=== PATIENT | female | born 1930 | race Caucasian/White ===

== ENCOUNTER 2016-06-17 17:05 | Emergency (ER) | payer MEDICARE, BC ==
[~2016-06-17 17:05] MED LIST: ACIDOPHILUS1 EAC3 PO; AMIODARONE HCL200 M1 PO; AMLODIPINE BESYL5 MG PO; ASPIR 8181 M1 PO; BROVANA15 MCG/22 INH; BUDESONIDE0.5 MG/21 IH; CALCIUM600 M1 PO; CERTAVITE SR-A1 EACH PO; CLARITIN10 M8 PO; DEMADEX20 M1 PO; HYDROCODON-ACE1 EA16 PO; IPRAT-ALBUT 0.5-3 ML IH; LEVEMIR100 UNITS/ SC; LOPERAMIDE2 M2 PO; METOLAZONE2.5 M1 PO; NOVOLOG100 UNITS/ SC; POTASSIUM CHLO20 ME2 PO; PRAVASTATIN SOD20 M1 PO; PRED FORTE1 ML RIGHT EYE; REGULOID0.52 GM PO; TRAMADOL HCL50 M2 PO; [UNRECOGNIZED DRUG - SUPPLY] MC
[2016-06-17] MEDS ORDERED: NORVASC5 M2 PO (17:50)
[2016-06-17] MEDS ORDERED: LACTINEX CHEWA1 EAC1 PO (17:50)
[2016-06-17] MEDS ORDERED: AMIODARONE HCL200 M1 PO (17:50)
[2016-06-17] MEDS ORDERED: PULMICORT0.5 MG/22 INH (17:50)
[2016-06-17] MEDS ORDERED: CALCIUM600 M1 PO (17:51)
[2016-06-17] MEDS ORDERED: CERTAVITE-ANTI1 EACH PO (17:51)
[2016-06-17] MEDS ORDERED: LEVEMIR100 UNITS/ SC (17:51)
[2016-06-17] MEDS ORDERED: NOVOLOG100 UNITS/ (17:53)
[2016-06-17] MEDS ORDERED: METOLAZONE2.5 M1 PO (17:53)
[2016-06-17] MEDS ORDERED: DIABETIC (17:53)
[2016-06-17] MEDS ORDERED: POTASSIUM CHLO20 ME3 PO (17:53)
[2016-06-17] MEDS ORDERED: PRAVASTATIN SOD20 M1 PO (17:54)
[2016-06-17] MEDS ORDERED: PREDNISOLONE AC 1% (17:55)
[2016-06-17 17:56] LABS: BASO % 0.1 % (0-2); EOS % 2.8 % (0-7); EOSINOPHIL ABSOLUTE COUNT 0.2 tho/cmm (0.0-0.7); HCT-HEMATOCRIT 38.5 % (34.0-49.0); HGB-HEMOGLOBIN 12.8 gm/dl (12.0-15.5); IMMATURE GRANULOCYTES ABSOLUTE 0.05 tho/cmm (0-0.03); IMMATURE GRANULOCYTES PERCENT 0.7 % (0-0.3); LYMPH % 17.9 % (20-45); LYMPH ABSOLUTE COUNT 1.2 tho/cmm (0.8-4.5); MCH (MEAN CORPUSCULAR HGB) 30.9 pg (28.0-32.0); MCHC MEAN CORPUSCULAR HGB CONC 33.2 % (32.0-36.0); MEAN PLATELET VOLUME 10.3 cmc (9.4-12.4); MONOCYTE ABSOLUTE COUNT 0.8 tho/cmm (0.0-1.2); NEUTROPHIL ABSOLUTE COUNT 4.6 tho/cmm (1.6-8.0); NEUTROPHIL-AUTOMATED 4.6 tho/cmm (1.6-8.0); NEUTROPHILS % 66.5 % (40-80); PLATELET COUNT 132 tho/cmm (150-450); RED BLOOD COUNT 4.14 mil/cmm (4.00-5.20); RED CELL DISTRIBUTION WIDTH 13.5 % (12.4-16.4); WHITE BLOOD COUNT 6.9 tho/cmm (4.0-10.0)
[2016-06-17] MEDS ORDERED: DEMADEX20 M1 PO (17:56)
[2016-06-17] MEDS ORDERED: ALDACTONE25 M1 PO (17:56)
[2016-06-17] MEDS ORDERED: REGULOID0.52 GM PO (17:56)
[2016-06-17] MEDS ORDERED: TYLENOL EXTRA500 M1 PO (17:57)
[2016-06-17] MEDS ORDERED: ALBUTEROL2.5 MG/3 M INH (17:57)
[2016-06-17] MEDS ORDERED: IPRATROPIU0.2 MG/1 M INH (17:58)
[2016-06-17] MEDS ORDERED: TRAMADOL HCL50 M2 PO (18:01)
[2016-06-17] MEDS ORDERED: LIDOCAINE HCL5 M1 APL (18:03)
[2016-06-17 18:12] LABS: ANION GAP 14 mmol/L (0-20); BLOOD UREA NITROGEN 73 mg/dl (6-24); CALCIUM 9.2 mg/dl (8.5-10.5); CARBON DIOXIDE-VENOUS 29 mmol/L (22-32); CHLORIDE 97 mmol/l (96-110); CREATININE 2.17 mg/dl (0.50-1.10); GLUCOSE 211 mg/dL (70-110); POTASSIUM 3.8 mmol/L (3.7-5.1); SODIUM 136 mmol/L (135-145); eGFR VALUE FOR BLACK 23 mL/Min
== END 2016-06-17 20:02 ==
LOC: EDMED 17:05
PROVIDERS: Emergency Medicine
DX: E11.22 Type 2 diabetes mellitus with diabetic chronic kidney disease (principal); N18.9 Chronic kidney disease, unspecified; I50.9 Heart failure, unspecified; E78.5 Hyperlipidemia, unspecified; Z90.710 Acquired absence of both cervix and uterus; Z90.49 Acquired absence of other specified parts of digestive tract; Z79.4 Long term (current) use of insulin; Z79.899 Other long term (current) drug therapy